=== PATIENT | male | born 1970 | race Caucasian/White ===

== ENCOUNTER 2016-05-17 22:07 | Emergency (ER) | payer MEDICARE, OTHER ==
[2016-05-17 22:24] VITALS: TEMP 98.5; BMI 28.8
[2016-05-17 22:47] LABS: AUTOMATED BASOPHIL 0.7 % (0-2); AUTOMATED EOSINOPHIL 10.1 % (0-5); AUTOMATED LYMPH 35.9 % (17-44); AUTOMATED NEUTROPHIL 45.3 % (45-76); MPV 8.8 fL (7.4-10.4)
[2016-05-17 22:49] LABS: PARTIAL THROMB. TIME 24.8 SEC (22-35)
[2016-05-17 22:52] LABS: BLOOD UREA NITROGEN 13 MG/DL (9-20); CALCIUM 9.3 MG/DL (8.4-10.2); CALCULATED OSMOLALITY 273 MOs/Kg (270-290); CHLORIDE 105 mEq/L (98-107); GLUCOSE 97 MG/DL (70-99); SODIUM LEVEL 142 mEq/L (137-146); TOTAL PROTEIN 7.3 G/DL (6.3-8.2)
[2016-05-17] MEDS ORDERED: MORPHINE 4 MG/ML INJECTION IV ONE (23:11)
[2016-05-17] MEDS ORDERED: ONDANSETRON HCL 4 MG/2 ML VIAL IV ONE (23:11)
--- NOTE | 2016-05-17 23:14 | EDPRACDOC ---
- General Information Chief Complaint: Chest Pain Stated Complaint: CHEST TIGHTNESS, FALL Time Seen by Provider: 05/17/16 23:04 Information Source: Patient Mode of Arrival: Car Home Medications: Home Medications Oxycodone HCl [Roxicodone] 5 mg PO Q4-6H PRN #30 tablet 08/14/15 Promethazine [Phenergan] 25 mg PO Q8H PRN #30 tab 08/14/15 Diazepam [Valium] 5 mg PO BID #10 tablet 12/16/15 Ketorolac Tromethamine [Toradol] 10 mg PO Q6H PRN #20 tab 12/16/15 Omeprazole [Prilosec] 20 mg PO BID 12/16/15 Ondansetron [Zofran Odt] 4 mg PO Q6H #20 tab.rapdis 12/16/15 Ranitidine HCl [Zantac] 150 mg PO DAILY PRN 12/16/15 Diazepam [Valium] 5 mg PO TID PRN #15 tablet 05/18/16 Oxycodone Immediate Release [Oxycodone Immediate Release (OxyIR)] 5 mg PO Q6H PRN #15 tab 05/18/16 Allergies/Adverse Reactions: Allergies Allergy/AdvReac Type Severity Reaction Status Date / Time No Known Allergies Allergy Verified 05/17/16 22:24 - History of Present Illness Onset: 3 hours HPI: Pt c/o L chest pain x 3-4 hours with sob and L shoulder pain. Denies fever, earache, sore throat, congestion, cough, abd pain, changes in bowel or bladder. Pt states fell on ice while getting out of car and c/o back pain. Stress test 1.5 yr ago. denies cath. Pt states had similar episode 3 days ago and awoke sweating at night. Chest Pain Location: Reports: Left Chest Pain Radiation: Reports: Shoulder (L) Symptoms Occur: Reports: Gradually Cardiac Risk Factors: Reports: Smoker Cardiac History of: Reports: Stress Test Medications within 24 Hours: Reports: Aspirin Prehospital Care: Reports: ASA Pain Came On: Reports: Gradually Pain Status: Present Now Pain Description: Reports: Pressure Pain Severity: Moderate Pain Worsens With: Reports: Nothing Pain Improves With: Reports: Nothing Associated Signs and Symptoms: Reports: SOB ED Past Medical History - Patient Medical History Cardiac History: Reports: Stress Test (JUN 2015) GI/ History: Reports: Kidney Stones, Gastroesophageal Reflux Psychological History: Denies: Depression Surgical History: Reports: Cholecystectomy - Social Medical History Smoking Status: Heavy tobacco smoker (5 or more cigarettes/day or daily pipe/ cigar) EDM Review of Systems - Review of Systems Constitutional: No Symptoms Reported. negative: Fever, Chills, Weakness, Fatigue, Loss of Appetite Ears: No Symptoms Reported. negative: Pain, Hearing Loss, Drainage, Ear Pulling Throat: No Symptoms Reported. negative: Pain, Swelling Nose: No Symptoms Reported. negative: Congestion, Bleeding, Discharge, Injection, Swelling, Deformity, Ecchymosis, Tender, Abrasion, Laceration Mouth: No Symptoms Reported. negative: Pain, Drooling Respiratory: Shortness of Breath Cardiovascular: Chest Pain Gastrointestinal: No Symptoms Reported. negative: Pain, Constipation, Nausea, Vomiting, Diarrhea, Melena, Formula Intolerance Genitourinary: No Symptoms Reported. negative: Dysuria, Hematuria, Frequency, Discharge, Bleeding, Testicular Pain, Neurological: No Symptoms Reported. negative: Headache, Dizziness, Seizure, Numbness, Weakness, Speech Difficulty, Gait Difficulty Musculoskeletal: Back, Shoulder Integumentary: No Symptoms Reported. negative: Itching, Rash, Bruising, Wound Allergic/Immunologic: No Symptoms Reported. negative: Hives, Itching Hematologic: No Symptoms Reported. negative: Lymphadenopathy, Easy Bruising, Easy Bleeding Psychiatric: No Symptoms Reported. negative: Anxiety, Depression, Hallucinations, Insomnia, Suicidal - Physical Exam Constitutional: Alert Oriented to: Time, Person, Place Last recorded Vital Signs: Last Vital Signs Temp 98.5 F 05/17/16 22:17 Pulse 81 05/17/16 22:17 Resp 18 05/17/16 22:17 BP 130/76 05/17/16 22:17 Pulse Ox 95 05/17/16 22:17 Oxygen Pulse Oxygen Saturation 95 O2 Device Room Air Oxygen Flow Rate Fraction of Inspired Oxygen ( FIO2) - HEENT Head: Normal ( normocephalic) Eye Exam: Normal (PERRL, EOMI, Sclera white) Oropharynx: Normal (Pharynx:Moist without exudate,Gums-no swelling) Tympanic Membrane: Normal ENT EAC: Normal Nose: No Symptoms Reported (septum midline) Neck: Normal (FROM, trachea at midline) - Respiratory/Cardiovascular Respiratory: Normal - CTA (BBS clear to auscultation without adventitious sounds ) Cardiovascular: Normal (RRR without murmur, gallop or rub) - GI Auscultation: Normal (NABS) Palpation: Normal (Soft,No rebound or guarding, non distended) Tenderness: Non tender Barnett's Sign: Negative - Musculoskeletal Back: Normal (Non-Tender) Extremities: Normal (Normal tone, Pulses 2+ No cyanosis or edema, FROM) - Integumentary Skin: Normal, Warm, Dry Lymphatics: Normal (no adenopathy) - Neurologic Memory Impaired: Normal Motor Function: Normal (Normal tone, Pulses 2+ No cyanosis or edema, FROM) Mood Description: Normal Perception: Normal ED Chest Pain Exam - Respiratory/Cardiovascular Respiratory: Normal - CTA (clear to auscultation without adventitious sounds) Cardiovascular/Chest: Normal (RRR without murmur, gallop or rub) Radial Pulse: Normal Edema: negative: 1+, 2+, 3+, 4+, 5, 6 Chest Palpation: Normal (No chest tenderness) - Differential Diagnosis Angina, Costochondritis, Gastritis, Myocardial infarction, Pneumonia - Action Patient received Aspirin within last 24 hours?: Yes ASA given in the ED: No - Results 05/17/16 22:28 05/17/16 22: WBC 8.7 xk/uL (3.8-10.8) 05/17/16: RBC 4.94 xM/uL (4.70-6.10) 05/17/16 22: Hgb 15.3 g/dL (14.0-18.0) 05/17/16 22: Hct 44.7 % (42-52) 05/17/16 22: MCV 90 fL (80-94) 05/17/16 22: MCH 31.0 pg (27-32) 05/17/16 22: MCHC 34.3 g/dl (33-36) 05/17/16 22: RDW 13.4 % (11.5-14.5) 05/17/16 22: Plt Count 196 xk/uL (130-400) 05/17/16 22: MPV 8.8 fL (7.4-10.4) 05/17/16 22: Neut % (Auto) 45.3 % (45-76) 05/17/16 22:28 Lymph % (Auto) 35.9 % (17-44) 05/17/16 22:28 [place] % (Auto) 8.0 % (3-10) 05/17/16 22: Eos % (Auto) 10.1 % (0-5) H 05/17/16 22:28 Baso % (Auto) 0.7 % (0-2) 05/17/16 22: Absolute Neuts (auto) 3.92 xk/uL (1.7-8.2) 05/17/16 22: Absolute Lymphs (auto) 3.05 xk/uL (0.65-4.75) 05/17/16 22: PT 10.0 SEC (9.2-11.2) 05/17/16: INR 1.0 05/17/16 22: APTT 24.8 SEC (22-35) 05/17/16 22:28 Sodium 142 mEq/L (137-146) 05/17/16 22: Potassium 4.3 mEq/L (3.5-5.1) 05/17/16 22: Chloride 105 mEq/L (98-107) 05/17/16 22: Carbon Dioxide 24 mMOL/L (22-33) 05/17/16 22: Anion Gap 17 mEq/L (8-16) H 05/17/16 22:28 BUN 13 MG/DL (9-20) 05/17/16 22:28 Creatinine 1.30 MG/DL (0.66-1.25) H 05/17/16 22:28 Estimated GFR (MDRD) 60 mL/min (>=60) 05/17/16 22:28 Glucose 97 MG/DL (70-99) 05/17/16 22:28 Calculated Osmolality 273 MOs/Kg (270-290) 05/17/16:28 Calcium 9.3 MG/DL (8.4-10.2) 05/17/16 22: Total Bilirubin 0.6 MG/DL (0.2-1.3) 05/17/16 22:28 AST 33 IU/L (17-59) 05/17/16 22:28 ALT 59 IU/L (21-72) 05/17/16 22:28 Alkaline Phosphatase 71 IU/L (38-126) 05/17/16 22:28 Troponin I < 0.01 ng/mL (<.04) 05/17/16 22:28 Vjy-[id number]-Kmcrgdgphje Pept 14 pg/mL (0-450) 05/17/16 22:28 Total Protein 7.3 G/DL (6.3-8.2) 05/17/16 22:28 Albumin 4.1 G/DL (3.5-5.0) 05/17/16 22:28 Lab Results 05/17/16 05/17/16 05/17/16 22:28 22:28 22:28 WBC 8.7 RBC 4.94 Hgb 15.3 Hct 44.7 MCV 90 MCH 31.0 MCHC 34.3 RDW 13.4 Plt Count 196 MPV 8.8 Neut % (Auto) 45.3 Lymph % (Auto) 35.9 [place] % (Auto) 8.0 Eos % (Auto) 10.1 H Baso % (Auto) 0.7 Absolute Neuts (auto) 3.92 Absolute Lymphs (auto) 3.05 PT 10.0 INR 1.0 APTT 24.8 Sodium 142 Potassium 4.3 Chloride 105 Carbon Dioxide 24 Anion Gap 17 H BUN 13 Creatinine 1.30 H Estimated GFR (MDRD) 60 Glucose 97 Calculated Osmolality 273 Calcium 9.3 Total Bilirubin 0.6 AST 33 ALT 59 Alkaline Phosphatase 71 Troponin I < 0.01 Udb-[id number]-Accwbpzcrrv Pept 14 Total Protein 7.3 Albumin 4.1 Laboratory Results - last 24 hr 05/17/16 05/17/16 05/17/16 22:28 22:28 22:28 WBC 8.7 RBC 4.94 Hgb 15.3 Hct 44.7 MCV 90 MCH 31.0 MCHC 34.3 RDW 13.4 Plt Count 196 MPV 8.8 Neut % (Auto) 45.3 Lymph % (Auto) 35.9 [place] % (Auto) 8.0 Eos % (Auto) 10.1 H Baso % (Auto) 0.7 Absolute Neuts (auto) 3.92 Absolute Lymphs (auto) 3.05 PT 10.0 INR 1.0 APTT 24.8 Sodium 142 Potassium 4.3 Chloride 105 Carbon Dioxide 24 Anion Gap 17 H BUN 13 Creatinine 1.30 H Estimated GFR (MDRD) 60 Glucose 97 Calculated Osmolality 273 Calcium 9.3 Total Bilirubin 0.6 AST 33 ALT 59 Alkaline Phosphatase 71 Troponin I < 0.01 Pwp-O-Aaggbyzuhzi Pept 14 Total Protein 7.3 Albumin 4.1 Laboratory Results 05/17/16 22:28 05/17/16 22:28 - EKG EKG #1 EKG Time: 22:15 Rate: bpm: 92 [place]: RAD Rhythm: NSR Block: None ST: Normal - Diagnostic Imaging Hip Image interpreted by: Radiologist IMPRESSION: No acute fracture or dislocation. C-spine Image interpreted by: Radiologist IMPRESSION: No acute bony abnormality of the cervical spine. Chest Image interpreted by: Radiologist IMPRESSION: No acute pulmonary process. - Additional Information Pt evaluated by Dr Lamar méndez to d/c home Decision Time to Discharge: 03:05 - Departure Disposition: Home Condition: Good Final Diagnosis: Cervical strain, acute Qualifiers: Encounter type: initial encounter Qualified Code(s): S16.1XXA - Strain of muscle, fascia and tendon at neck level, initial encounter Sprain of right hip Qualifiers: Encounter type: initial encounter Qualified Code(s): S73.101A - Unspecified sprain of right hip, initial encounter Chest pain Qualifiers: Chest pain type: unspecified Qualified Code(s): R07.9 - Chest pain, unspecified Instructions: Chest Pain (ED), Chest Wall Pain, Hip Sprain (ED), Cervical Strain (ED) Education/Counseling Given To: Patient, Family Member Education/Counseling Given Regarding: Diagnosis, Treatment, Follow Up Referrals: Edouard Daly MD [Primary Care Provider] - One Week Prescriptions: Diazepam [Valium] 5 mg PO TID PRN #15 tablet PRN Reason: Muscle Spasms Oxycodone Immediate Release [Oxycodone Immediate Release (OxyIR)] 5 mg PO Q6H PRN #15 tab PRN Reason: Pain Additional Instructions: ASA daily. Follow up with PCP for further evaluation.
[2016-05-17] MEDS: NITROGLYCERINE 0.4 MG TAB SL PRN ×3 (23:27→23:38)
--- NOTE | 2016-05-17 23:42 | DIRPT ---
CLINICAL DATA: Left-sided chest pain for 3 hours. Shortness of breath. Left shoulder pain. EXAM: PORTABLE CHEST 1 VIEW COMPARISON: 12/16/2015 FINDINGS: The cardiomediastinal contours are normal. The lungs are clear. Pulmonary vasculature is normal. No consolidation, pleural effusion, or pneumothorax. No acute osseous abnormalities are seen. Spinal stimulator remains in place. IMPRESSION: No acute pulmonary process. Electronically Signed By: Cyndi Gamino M.D. On: 05/17/2016 23:39
[2016-05-18 00:38] LABS: LEUKOCYTES/URINE NEG (NEGATIVE); NITRITE/URINE NEG (NEGATIVE); URINE OCCULT BLOOD NEG (NEG/TRACE)
[2016-05-18] MEDS ORDERED: NITROGLYCERINE 2 % OINTMENT PACK TOP ONE (00:48)
[2016-05-18] MEDS ORDERED: MORPHINE 4 MG/ML INJECTION IV ONE (00:48)
[2016-05-18] MEDS ORDERED: HYDROmorphone 1 MG INJECTION IV ONE (02:40)
--- NOTE | 2016-05-18 02:55 | DIRPT ---
CLINICAL DATA: 45-year-old male with fall and right hip pain. EXAM: RIGHT HIP (WITH PELVIS) 2-3 VIEWS COMPARISON: None. FINDINGS: There is no evidence of hip fracture or dislocation. Partially visualized lower lumbar fixation hardware. A generator device is noted in the right gluteal region. IMPRESSION: No acute fracture or dislocation. Electronically Signed By: Rogelio Allen M.D. On: 05/18/2016 02:52
--- NOTE | 2016-05-18 02:57 | DIRPT ---
CLINICAL DATA: Slip and fall on ice, now with neck pain. EXAM: CERVICAL SPINE - COMPLETE 4+ VIEW COMPARISON: None. FINDINGS: Straightening of normal lordosis, alignment is otherwise maintained. Vertebral body heights and intervertebral disc spaces are preserved. There is endplate spurring at C5-C6. The dens is intact. Posterior elements appear well-aligned. There is no evidence of fracture. No prevertebral soft tissue edema. IMPRESSION: No acute bony abnormality of the cervical spine. Electronically Signed By: Cyndi Gamino M.D. On: 05/18/2016 02:54
[2016-05-18] MEDS ORDERED: ONDANSETRON HCL 4 MG ODT TAB PO ONE (03:11)
[2016-05-18 03:53] VITALS: BP 129/77; PULSE 73
== END 2016-05-18 03:40 | disposition home or self-care (01) ==
LOC: ED 22:07
DX: S16.1XXA Strain of muscle, fascia and tendon at neck level, initial encounter (principal); S73.101A Unspecified sprain of right hip, initial encounter; X58.XXXA Exposure to other specified factors, initial encounter
CPT/HCPCS: 36415; 71010; 72050; 73502; 80053; 81001; 83880; 84484; 85025; 85379; 85610; 85730; 93005; 96374; 96375; 96376; 99285; A9270; J1170; J2270; J2405; J3490